=== PATIENT | female | born 1955 | race Caucasian/White ===

== ENCOUNTER → 2019-02-07 | Outpatient (CLI) | payer MEDICARE, OTHER ==
--- NOTE | 2019-02-07 12:21 | PCVCIMAG ---
EXAM: BILATERAL LOWER EXTREMITY ARTERIAL DUPLEX INDICATION: Peripheral Arterial Disease. Leg pain. FINDINGS: Right Leg: Satisfactory arterial waveforms throughout the common/profunda/superficial femoral, popliteal, anterior tibial, peroneal, and posterior tibial arteries. No flow limiting stenosis seen. Left Leg: Satisfactory arterial waveforms throughout the common/profunda/superficial femoral, popliteal, anterior tibial, peroneal, and posterior tibial arteries. No flow limiting stenosis seen. IMPRESSION: No flow limiting stenosis in the right lower extremity. No flow limiting stenosis in the left lower extremity. LOC:[id number]
== END | disposition home or self-care (01) ==
LOC: PCVCIMAG 10:31
PROVIDERS: ATTEND Internal Medicine Cardiovascular Disease
DX: M79.605 Pain in left leg (principal); R60.9 Edema, unspecified; E78.00 Pure hypercholesterolemia, unspecified; I10 Essential (primary) hypertension; E11.9 Type 2 diabetes mellitus without complications; Z88.0 Allergy status to penicillin
CPT/HCPCS: 36415; 80061; 93005; 93925; G0463

== ENCOUNTER → 2019-02-14 | Outpatient (CLI) | payer MEDICARE, OTHER ==
[~2019-02-14] MED LIST: REGADENOSON 0.4 MG/5 ML DISP.SYRIN. IV ONE
--- NOTE | 2019-02-14 09:22 | PCVCIMAG ---
APPROVED REPORT Study performed: 02/14/2019 08:05:06 EXAM: Comprehensive 2D, Doppler, and color-flow Echocardiogram Patient Location: Echo lab Room #: 2Status: routine BSA: 2.08 HR: 65 bpmBP: 142/90 mmHg Rhythm: NSR Other Information Study Quality: Adequate Risk Factors: Cardiac Risk Factors: HTN, Hyperlipidemia Indications Pre-Op Dyspnea Fatigue Peripheral Edema Hypertension/HDD 2D Dimensions IVSd: 10.76 (7-11mm)LVOT Diam: 20.23 (18-24mm) LVDd: 45.01 mm PWd: 11.11 (7-11mm)Ascending Ao: 30.42 (22-36mm) LVDs: 30.20 (25-40mm) Left Atrium: 32.89 (27-40mm) Aortic Root: 27.41 mm LV Single Plane 4CH: 62.34 % LV Single Plane 2CH: 50.20 % Biplane EF: 56.3 % Volumes Left Atrial Volume (Systole) Single Plane 4CH: 61.31 mLSingle Plane 2CH: 93.02 mL Biplane LA Volume: 78.00 mLLA ESV Index: 37.00 mL/m2 Aortic Valve AoV Peak Anoop.: 1.62 m/s AO Peak Gr.: 10.50 mmHgLVOT Max P.69 mmHg LVOT Max V: 0.94 m/s JAZMIN Vmax: 1.86 cm2 Mitral Valve E/A Ratio: 1.1 MV Decel. Time: 148.00 ms MV E Max Anoop.: 1.08 m/s MV A Anoop.: 0.96 m/s IVRT: 69.20 ms TDI E/Lateral E': 18.00E/Medial E': 21.60 Medial E' Anoop.: 0.05 m/s Lateral E' Anoop.: 0.06 m/s Pulmonary Valve PV Peak Anoop.: 0.91 m/sPV Peak Gr.: 3.33 mmHg Pulmonary Vein P Vein S: 0.58 m/sP Vein A: 0.33 m/s P Vein D: 0.34 m/sP Vein A Dur.: 100.3 msec P Vein S/D Ratio: 1.71 Tricuspid Valve TV Vmax: 0.62 m/s Left Ventricle The left ventricle is normal size. There is normal LV segmental wall motion. Mild concentric left ventricular hypertrophy. Left ventricular systolic function is normal. The left ventricular ejection fraction is within the normal range. LVEF is 55-60%. Left atrial pressure is elevated. The left ventricular diastolic function is normal. Right Ventricle The right ventricle is normal size. The right ventricular systolic function is normal. Atria Left atrium is mildly dilated. The right atrium size is normal. Aortic Valve Aortic valve is not well visualized but appears trileaflet. No aortic regurgitation is present. There is no aortic valvular stenosis. Mitral Valve The mitral valve is normal in structure. There is no mitral valve regurgitation noted. No evidence of mitral valve stenosis. Tricuspid Valve The tricuspid valve is normal in structure. No pulmonary hypertension. Pulmonic Valve The pulmonary valve is normal in structure. There is no pulmonic valvular regurgitation. Great Vessels The aortic root is normal in size. The ascending aorta is normal in size. Aortic arch is normal in caliber. IVC is normal in size and collapses >50% with inspiration. Pericardium There is no pericardial effusion. There is no pleural effusion. <Conclusion> The left ventricle is normal size. Mild concentric left ventricular hypertrophy. LVEF is 55-60%. Left atrial pressure is elevated. The left ventricular diastolic function is normal. The right ventricle is normal size. Left atrium is mildly dilated. Aortic valve is not well visualized but appears trileaflet. There is no mitral valve regurgitation noted. No pulmonary hypertension. The aortic root is normal in size. There is no pericardial effusion.
--- NOTE | 2019-02-14 16:36 | PCVCIMAG ---
APPROVED REPORT Imaging Protocol: Rest Tc-99m/Stress Tc-99m 1 day Study performed: 02/14/2019 09:23:49 Indication: Pre-Operative CV evaluation, Dyspnea, Fatigue Patient Location: Out-Patient Stress Nurse: Lashae Anderson RN AR Tech:Katty Chambers [facility] Ht: 5 ft 4 in Wt: 232 lbs BSA: 2.08 m2 HR: 69 bpm BP: 200/92 mmHg BMI: 39.8 Rhythm: Normal Sinus Rhythm Medical History Medical History: Hyperlipidemia, HTN, Diabetes, Former Smoker Medications: Albuterol, ASA, Lasix, Insulin, KCL, Bystolic, Edarbi Allergies: PCN Cardiac Risk Factors: Age Pretest Chest Pain Characteristics: No chest pain Exercise History: Sedentary Physical Disabilities: Knees, Back Meds Held (24 hrs): Bystolic Resting Data Rest SPECT myocardial perfusion imaging was performed in supine position 45 minutes following the intravenous injection of 14 mCi of Tc-99m Sestamibi. Time of rest injection: 929 Date: 02/14/2019 Administration Route: IV Administration Site: Left AC Pharmacologic Stress Pharmacologic stress test was performed by injecting Regadenoson 0.4 mg IV push over 10-15 seconds immediately followed by the intravenous injection of 43.2 mCi of Tc-99m Sestamibi. Time of stress injection: 1114 Administration Route: IV Administration Site: Left AC Gated Stress SPECT was performed 45 minutes after stress injection. The images were gated to evaluate regional wall motion and calculate left ventricular ejection fraction. Stress Test Details Stress Test: Pharmacologic stress testing performed using 0.4 mg of regadenoson per 5 mL given IV over 10 seconds. Reason for pharmacologic stress test: Knee/back surgeries pending. HRMax Heart Rate (APMHR): 155 bpm Resting HR: 69 bpmTarget HR (85% APMHR): 131 bpm Max HR Achieved: 87 bpm % of APMHR: 56 Recovery HR: 84 bpm BP Resting BP: 200/92 mmHg Max BP: 157/89 mmHg Recovery BP: 189/78 mmHg ECG Resting ECG: Sinus Rhythm Stress ECG: Sinus Rhythm Arrhythmia: PVC's Recovery ECG: Sinus Rhythm Clinical Reason for Termination: Completed protocol Stress Symptoms: Dyspnea, Leg Fatigue Symptoms resolved with caffeine. Stress ECG Conclusion ECG: Non-ischemic Study Quality Artifact: Mild Breast artifact Study Data Post stress, the left ventricular ejection was 60%.. SSS: 6 SRS: 0 SDS: 6 TID = 1.14. Perfusion No evidence of stress induced ischemia or prior myocardial infarction. Wall Motion Normal left ventricular size and function with no regional wall motion abnormalities. Nuclear Conclusion No evidence of stress induced ischemia or prior myocardial infarction. Normal left ventricular size and function with no regional wall motion abnormalities. Post stress, the left ventricular ejection was 60%. No prior study available for comparison. Interpreted by: Santos Morrow MD Electronically Approved: 02/14/2019 13:53:11 <Conclusion> ECG: Non-ischemic
== END | disposition home or self-care (01) ==
LOC: PCVCIMAG 07:54
PROVIDERS: ATTEND Internal Medicine Cardiovascular Disease
DX: Z01.810 Encounter for preprocedural cardiovascular examination (principal); R53.83 Other fatigue; R06.02 Shortness of breath; I10 Essential (primary) hypertension; J18.1 Lobar pneumonia, unspecified organism; E78.00 Pure hypercholesterolemia, unspecified; M48.061 Spinal stenosis, lumbar region without neurogenic claudication; E11.9 Type 2 diabetes mellitus without complications; Z79.4 Long term (current) use of insulin
CPT/HCPCS: 78452; 93017; 93306; A9500; J2785

== ENCOUNTER → 2019-03-17 | Outpatient (CLI) | payer MEDICARE, OTHER | END | disposition home or self-care (01) | LOC: PCVCCLINIC 15:14 | PROVIDERS: ATTEND Internal Medicine Cardiovascular Disease | DX: Z01.818 Encounter for other preprocedural examination (principal); I10 Essential (primary) hypertension; E78.00 Pure hypercholesterolemia, unspecified; E11.9 Type 2 diabetes mellitus without complications; R60.9 Edema, unspecified; Z79.4 Long term (current) use of insulin; Z87.891 Personal history of nicotine dependence; Z79.82 Long term (current) use of aspirin; Z79.899 Other long term (current) drug therapy; Z88.0 Allergy status to penicillin | CPT/HCPCS: 93005; G0463 ==